=== PATIENT | female | born 2000 | race African-American/Black ===

== ENCOUNTER 2020-05-16 15:53 | Emergency (ER) | payer BC ==
[2020-05-16 16:00] VITALS: BP 139/74
--- NOTE | 2020-05-16 17:26 | ER Document Report ---
HPI - HPI Time Seen by Provider: 05/16/20 17:02 Onset/Duration: Gradual Context: Patient presents requesting testing for chlamydia. Patient states she was in urgent care a few days ago and received a call today that she was positive for chlamydia. Patient states she is only been with 1 partner and her partner denies having an STD. Patient states she would like to be retested. Patient states she does have the prescription for treatment at the pharmacy but has not picked it up yet. States she has additional questions about STDs. Associated Symptoms: denies: Fever, Nausea, Vomiting Exacerbated by: Denies Relieved by: Denies Similar symptoms previously: No Recently seen / treated by doctor: Yes - ROS ROS below otherwise negative: Yes Systems Reviewed and Negative: Yes All other systems reviewed and negative - CONSTITUTIONAL Constitutional: DENIES: Fever, Chills - EENT EENT: DENIES: Sore Throat - GASTROINTESTINAL Gastrointestinal: DENIES: Abdominal Pain, Nausea, Patient vomiting - REPRODUCTIVE Reproductive: REPORTS: Abnormal bleeding / discharge. DENIES: : - MUSCULOSKELETAL Musculoskeletal: DENIES: Back Pain - DERM Skin Color: Normal Skin Problems: None Past Medical History - General Information source: Patient - Social History Smoking Status: Never Smoker Frequency of alcohol use: None Drug Abuse: None Occupation: hospital food service worker Lives with: Family Family History: Reviewed & Not Pertinent - Medical History Medical History: Negative Renal/ Medical History: Denies: Hx Peritoneal Dialysis Surgical Hx: Negative - Immunizations Immunizations up to date: Yes Vertical Provider Document - CONSTITUTIONAL Agree With Documented VS: Yes Exam Limitations: No Limitations General Appearance: WD/WN, No Apparent Distress Notes: PHYSICAL EXAMINATION: GENERAL: Well-appearing and in no acute distress. HEAD: Atraumatic, normocephalic. EYES: sclera anicteric, conjunctiva are normal. ENT: nares patent. Moist mucous membranes. NECK: Normal range of motion, supple without lymphadenopathy LUNGS: CTAB and equal. No wheezes rales or rhonchi. HEART: Regular rate and rhythm without murmurs ABDOMEN: Soft, nontender EXTREMITIES: Normal range of motion, no pitting edema. No cyanosis. BACK: No CVA tenderness NEUROLOGICAL: Cranial nerves grossly intact. Normal speech. Normal gait. PSYCH: Normal mood, normal affect. SKIN: Warm, Dry, normal turgor, no rashes or lesions noted - INFECTION CONTROL TRAVEL OUTSIDE OF THE [place] IN LAST 30 DAYS: No Course - Re-evaluation Re-evalutation: 05/16/20 17:24 Discussed with patient concerns about need for treatment for chlamydia. Offered to retest, after discussing STDs importance of treatment, patient did not declines needing a retest. Patient states that she does not need to receive the medication here as she has a prescription waiting at the pharmacy. Offered patient syphilis testing, patient declines. Patient plans to follow-up with her primary doctor for any syphilis or HIV testing. - Vital Signs Vital signs: Temp Pulse Resp BP Pulse Ox 98.1 F 84 14 139/74 H 100 05/16/20 15:59 05/16/20 15:59 05/16/20 15:59 05/16/20 15:59 05/16/20 15:59 Discharge - Discharge Clinical Impression: Chlamydia Condition: Stable Disposition: HOME, SELF-CARE Instructions: Chlamydia ([facility]) Additional Instructions: Return immediately for any new or worsening symptoms Followup with your primary care provider, call tomorrow to make a followup appointment Get your antibiotic filled at the pharmacy and take as prescribed If you would like HIV and syphilis testing, you can see your primary doctor to have these tests performed or follow-up with the health department. Safe sex practices, always use a condom Referrals: [facility] [NO LOCAL MD] - Follow up as needed
== END 2020-05-16 17:51 | disposition home or self-care (01) ==
LOC: ER 15:53
DX: A74.9 Chlamydial infection, unspecified (principal); N93.9 Abnormal uterine and vaginal bleeding, unspecified; N89.8 Other specified noninflammatory disorders of vagina
CPT/HCPCS: 99283